=== PATIENT | female | born 1985 | race Two or more races ===

== ENCOUNTER 2019-02-18 14:46 | Emergency (ER) | payer BC, OTHER ==
[~2019-02-18] VITALS: Ht 165.1 cm; Wt 93.4 kg
[2019-02-18 15:13] VITALS: BP 109/66
== END 2019-02-18 16:12 | disposition home or self-care (01) ==
LOC: ER 14:50
DX: S83.91XA Sprain of unspecified site of right knee, initial encounter (principal); X50.1XXA Overexertion from prolonged static or awkward postures, initial encounter; Y93.89 Activity, other specified; Y99.8 Other external cause status; Y92.89 Other specified places as the place of occurrence of the external cause
CPT/HCPCS: 73562

== ENCOUNTER 2020-05-05 06:50 | Emergency (ER) | payer BC ==
[~2020-05-05] VITALS: Ht 165.1 cm; Wt 80.3 kg
[2020-05-05 08:55] LABS: Urine Bacteria NONE SEEN /hpf (None Seen); Urine Blood Negative /uL (Negative); Urine Mucus FEW (None Seen); Urine Specific Gravity 1.025 (1.001-1.035); Urine WBC 7 /hpf (0 - 5)
[2020-05-05 10:18] VITALS: BP 112/70
== END 2020-05-05 10:17 | disposition home or self-care (01) ==
LOC: ER 06:50
DX: U07.1 COVID-19 (principal); G43.909 Migraine, unspecified, not intractable, without status migrainosus; B34.9 Viral infection, unspecified; N39.0 Urinary tract infection, site not specified; F17.210 Nicotine dependence, cigarettes, uncomplicated
CPT/HCPCS: 71045; 81001; 81025; 87070; 87880; 99284; C9803; U0003

== ENCOUNTER 2022-03-23 14:56 | Emergency (ER) | payer BC, OTHER ==
[~2022-03-23] VITALS: Ht 165.1 cm; Wt 88.5 kg
[2022-03-23] MEDS ORDERED: IBUPROFEN 800 MG TAB PO ONE (16:30)
[2022-03-23] MEDS ORDERED: IBUP800T27 PO (16:35)
[2022-03-23 17:09] VITALS: BP 115/69
== END 2022-03-23 20:50 | disposition home or self-care (01) ==
LOC: ER 14:56
DX: S33.5XXA Sprain of ligaments of lumbar spine, initial encounter (principal); S63.92XA Sprain of unspecified part of left wrist and hand, initial encounter; S00.93XA Contusion of unspecified part of head, initial encounter; F17.210 Nicotine dependence, cigarettes, uncomplicated; F12.10 Cannabis abuse, uncomplicated; Z90.89 Acquired absence of other organs; V43.62XA Car passenger injured in collision with other type car in traffic accident, initial encounter; Y93.89 Activity, other specified; Y92.410 Unspecified street and highway as the place of occurrence of the external cause; Y99.8 Other external cause status
CPT/HCPCS: 70450; 72131; 73130

== ENCOUNTER 2022-11-25 00:50 | Emergency (ER) | payer BC ==
[~2022-11-25] VITALS: Ht 152.4 cm; Wt 95.0 kg
[~2022-11-25 00:50] MED LIST: IBUP800T27 PO
[2022-11-25 01:24] VITALS: BP 98/64
[2022-11-25] MEDS ORDERED: ACET-1158 PO (02:42)
[2022-11-25] MEDS ORDERED: AMOX-277 PO (02:42)
[2022-11-25] MEDS ORDERED: ONDA-144 PO (02:42)
[2022-11-25] MEDS ORDERED: PRED20TA2 PO ×2 (02:42→03:09)
[2022-11-25] MEDS ORDERED: ONDANSETRON ODT 4 MG TAB PO ONE (02:45)
[2022-11-25] MEDS ORDERED: methylPREDNISolone SOD SUCC 125 MG/2 ML VL IM ONE (02:45)
[2022-11-25] MEDS ORDERED: cefTRIAXone SOD 1,000 MG VL IM ONE (02:45)
== END 2022-11-25 03:56 | disposition home or self-care (01) ==
LOC: ER 00:52
DX: J06.9 Acute upper respiratory infection, unspecified (principal); H92.01 Otalgia, right ear; F17.210 Nicotine dependence, cigarettes, uncomplicated; F12.90 Cannabis use, unspecified, uncomplicated; Z90.49 Acquired absence of other specified parts of digestive tract; Z20.822 Contact with and (suspected) exposure to COVID-19
CPT/HCPCS: 36415; 87426; 87804; 96372; 99284; J0696; J2930; Q0162

== ENCOUNTER 2024-06-10 20:40 | Emergency (ER) | payer BC, OTHER ==
[~2024-06-10] VITALS: Ht 165.1 cm; Wt 109.1 kg
[~2024-06-10 20:40] MED LIST changes: +ACET500T58 PO; +AMOX875T4 PO; +IBUP-1456 PO; -IBUP800T27 PO; +ONDA-144 PO; +PRED20TA2 PO
[2024-06-10 22:55] LABS: Urine Bacteria None Seen /hpf (None Seen)
[2024-06-10 23:01] LABS: Basophils # (auto) 0 10 ^3/uL (0-0.2); Basophils % (auto) 0.1 % (0.0-2.0); Eosinophils # (auto) 0.1 10 ^3/uL (0-0.8); Eosinophils % (auto) 0.8 % (0.0-7.0); Hematocrit 43.4 % (36.0-46.0); Lymphocytes # (auto) 0.8 10 ^3/uL (0.4-5.4); Lymphocytes % (auto) 6.8 % (10.0-50.0); Mean Corpuscular Hemoglobin 31.7 pg (28.0-32.0); Mean Corpuscular Hgb Conc. 34.4 g/dL (32.0-36.0); Mean Corpuscular Volume 92.1 fL (80.0-100.0); Monocytes # (auto) 0.8 10 ^3/uL (0-1.3); Monocytes % (auto) 6.8 % (0.0-12.0); Neutrophils # (auto) 10.2 10 ^3/uL (1.6-8.6); Neutrophils % (auto) 85.5 % (37.0-80.0); Red Blood Cells 4.72 10^6/uL (4.0-5.20); Red Cell Distribution Width 14.3 % (11.8-14.3)
[2024-06-10 23:05] LABS: Urine Blood Negative /uL (Negative); Urine Clarity Turbid (Clear); Urine Color Yellow (Yellow); Urine Mucus FEW (None Seen); Urine Protein, UAD TRACE (Negative); Urine Specific Gravity 1.031 (1.001-1.035); Urine Urobilinogen Normal (Negative); Urine WBC 5 /hpf (0 - 5); Urine pH 6.5 (5.0-9.0)
[2024-06-10] MEDS: HYDROmorphone HCL 2 MG/ML VL/or syr IM ONE (23:15)
[2024-06-10 23:18] LABS: Alanine Aminotransferase 13 U/L (7-40); Albumin 4.4 g/dL (3.2-4.8); Alkaline Phosphatase 63 U/L (46-116); Anion Gap 11 (5-15); Aspartate Aminotransferase 8 U/L (13-40); BUN/Creatinine Ratio 23.2 (10.0-20.0); Blood Urea Nitrogen 16 mg/dL (9-23); Calcium 9.6 mg/dL (8.7-10.4); Carbon Dioxide 21 mmol/L (20-30); Chloride 106 mmol/L (98-107); Glucose 115 mg/dL (74-106); Lipase 29 U/L (12-53); Potassium 3.8 mmol/L (3.5-5.1); Sodium 138 mmol/L (136-145)
[2024-06-10] MEDS: ONDANSETRON HCL 4 MG/2 ML VIAL IM ONE (23:18)
[2024-06-10 23:19] LABS: Bilirubin, Total 1.2 mg/dL (0.2-1.0); Total Protein 7.3 g/dL (5.7-8.2)
[2024-06-11] MEDS ORDERED: DICY10CA PO (01:57)
[2024-06-11] MEDS ORDERED: ZOFR4T PO (01:57)
[2024-06-11] MEDS ORDERED: ACET500T58 PO (01:57)
[2024-06-11 02:11] VITALS: BP 113/65; PULSE 64; RESP 17; TEMP 99; O2SAT 100
== END 2024-06-11 02:12 | disposition home or self-care (01) ==
LOC: ER 20:40
DX: A08.4 Viral intestinal infection, unspecified (principal); R10.2 Pelvic and perineal pain; N83.209 Unspecified ovarian cyst, unspecified side; Z79.52 Long term (current) use of systemic steroids; F17.210 Nicotine dependence, cigarettes, uncomplicated; F12.90 Cannabis use, unspecified, uncomplicated; Z79.899 Other long term (current) drug therapy; Z79.1 Long term (current) use of non-steroidal anti-inflammatories (NSAID); Z90.49 Acquired absence of other specified parts of digestive tract
CPT/HCPCS: 36415; 74176; 80053; 81001; 83605; 83690; 84484; 84702; 85025; 93005; 96372; 99285; J1170; J2405

== ENCOUNTER 2024-10-05 17:21 | Emergency (ER) | payer OTHER ==
[~2024-10-05] VITALS: Ht 165.1 cm; Wt 108.0 kg
[~2024-10-05 17:21] MED LIST changes: +DICY10CA PO; +ZOFR4T PO
--- NOTE | 2024-10-05 18:48 | DVH ---
CLINICAL INDICATION: first toe injury/pain TECHNIQUE: 3 radiographic views of the right foot were obtained. Comparison: None FINDINGS/IMPRESSION: There is no evidence of acute fracture or dislocation. The visualized joint space is well maintained. Small plantar and posterior calcaneal bony spurs. The alignment is anatomical. There is no radiopaque foreign body.
[2024-10-05] MEDS ORDERED: IBUP-1456 PO (19:54)
--- NOTE | 2024-10-05 19:54 | ED.PDOC ---
Back pain HPI HPI Comments This is a 38-year-old female presents to the ED chief complaint right great toe pain. Patient states was running and tripped over the dog and fell on her right knee stubbed her right great toe. She notes positive swelling in bruising. She is complaining of right great toe pain 7/10 on pain scale throbbing in nature. Denies numbness weakness or any other known injury. Chief Complaint: Lower Extremity Time Seen by MD: 18:10 Primary Care Provider: [facility] Notes: Nurses Notes, Medications, Allergies Allergies: Coded Allergies: NO KNOWN ALLERGIES (Unverified , 02/18/19) Home Meds Active Scripts Ibuprofen (Ibuprofen) 800 Mg Tab, 1 TAB PO TID PRN for 5 Days, #15 TAB Prov:LEILANI SARAVIA 10/05/24 Acetaminophen (Acetaminophen) 500 Mg Tab, 500 MG PO Q4HP PRN, #30 TAB Prov:KAREN GREEN PAC 06/11/24 Dicyclomine Hcl (BENTYL CAPSULE) 10 Mg Cp, 1 CAP PO Q6HPRN, #20 CAP 0 Refills Prov:KAREN GREEN PAC 06/11/24 Ondansetron Odt 4MG Tab (ZOFRAN PO) 4 Mg Tb, 4 MG PO Q6HP PRN, #20 TAB ODT TAB-DISSOLVE IN MOUTH, THEN SWALLOW Prov:KAREN GREEN PAC 06/11/24 Prednisone (Prednisone) 20 Mg Tab, 20 MG PO BID for 5 Days, #10 TAB 0 Refills Prov:ABEL WALLACE 11/25/22 Acetaminophen (Acetaminophen) 500 Mg Tab, 500 MG PO QIDP, #30 TAB 0 Refills Prov:ABEL WALLACE 11/25/22 Ondansetron (Zofran) 4 Mg Tab, 1 TAB PO Q8HPRN, #14 TAB 0 Refills Prov:ABEL WALLACE 11/25/22 Amoxicillin & Pot Clavulanate (Amoxicillin/Potassium Cla) 875 Mg Tab, 1 TAB PO BID for 7 Days, #14 TAB 0 Refills Prov:ABEL WALLACE 11/25/22 Ibuprofen (Ibuprofen) 800 Mg Tab, 800 MG PO Q8HP PRN, #30 TAB 0 Refills Prov:ZAHRA ELIAS MD 5/15/22 Mode of Arrival: Wheelchair Past Medical History PAST MEDICAL HISTORY: Denies Surgical History: Appendectomy HAND SPRING FORMER History: Denies all HAND SPRING FORMER Hx Family History Family History: Reviewed,noncontributory to illness Social History Smoker: Cigarettes, Less Than 1 Pack/Day Alcohol: Occasionally Drugs: Marijuana Lives In: Home Constitutional: denies: chills, diaphoresis, fatigue, fever, malaise, sweats, weakness, others EENTM: denies: blurred vision, double vision, ear bleeding, ear discharge, ear drainage, ear pain, ear ringing, eye pain, eye redness, hearing loss, mouth pain, mouth swelling, nasal discharge, nose bleeding, nose congestion, nose pain, photophobia, tearing, throat pain, throat swelling, voice changes, others Respiratory: denies: cough, hemoptysis, orthopnea, SOB at rest, shortness of breath, SOB with excertion, stridor, wheezing, others Cardiovascular: denies: chest pain, dizzy spells, diaphoresis, Dyspnea on exertion, edema, irregular heart beat, left arm pain, lightheadedness, palpitations, PND, syncope, others Gastrointestinal: denies: abdomen distended, abdominal pain, blood streaked bowels, constipated, diarrhea, dysphagia, difficulty swallowing, hematemesis, melena, nausea, poor appetite, poor fluid intake, rectal bleeding, rectal pain, vomiting, others Genitourinary: denies: abnormal vagina bleeding, burning, dyspareunia, dysuria, flank pain, frequency, hematuria, incontinence, pain, , vagina discharge, urgency, others Neurological: denies: dizziness, fainting, headache, left sided numbness, left sided weakness, numbness, paresthesia, pre-existing deficit, right sided numbness, right sided weakness, seizure, speech problems, tingling, tremors, wea kness, others Musculoskeletal: reports: others (Right great toe pain); denies: back pain, gout, joint pain, joint swelling, muscle pain, muscle stiffness, neck pain Integumetry: denies: bruises, change in color, change in hair/nails, dryness, laceration, lesions, lumps, rash, wounds, others Allergic/Immunocompromised: denies: Difficulty Healing, Frequent Infections, Hives, Itching, others Hematologic/Lymphatic: denies: anemia, blood clots, easy bleeding, easy bruising, swollen glands, others Endocrine: denies: excessive hunger, excessive sweating, excessive thirst, excessive urination, flushing, intolerance to cold, intolerance to heat, unexplained weight gain, unexplained weight loss, others Psychiatric: denies: anxiety, bipolar disorder, depression, hopeless, panic disorder, schizophrenia, sleepless, suicidal, others Physical Exam General Appearance: No Apparent Distress, Normal HEENT: Pharynx Normal Neck: Full Range of Motion, Non-Tender Respiratory: Lungs Clear, No Respiratory Distress, Normal Breath Sounds Cardiovascular: No Murmur, Normal Peripheral Pulses, Regular Rate/Rhythm Breast Exam: Deferred Gastrointestinal: No Organomegaly, Non Tender, No Pulsatile Mass, Normal Bowel Sounds, Soft Genitalia: Deferred Pelvic: Deferred Rectal: Deferred Extremities: Normal capillary refill, Normal inspection, Normal range of motion, Non-tender, No pedal edema Musculoskeletal : Location: Bilateral Extremity Location: Great Toe (Noted trace edema with ecchymosis cap refill less than 3 seconds full range of motion with mild discomfort no crepitus or bony prominence no open lesions or lacerations sensory strength and motion intact.), Knee (No noted patellar crepitus bilateral knees no noted ballottement lacerations or abrasions or ecchymosis. Bilateral knee negative Yann and negative drawer exam strength sensory motion intact positive pedal pulses.) Apperance: Normal Neurologic: Alert, barrel coater II-XII nml as Tested, No Motor Deficits, Normal Affect, Normal Mood, No Sensory Deficits Cerebellar Function: Normal Reflexes: Normal Skin: Dry, Normal Color, Warm Lymphatic: No Adenopathy Was a procedure done? Was a procedure done?: No Back Pain Differential Dx Differential Diagnosis: Fracture, Musculoskeletal Pain X-Ray, Labs, Meds, VS Vital Signs Date Time Temp Pulse Resp B/P (MAP) Pulse Ox O2 Delivery O2 Flow Rate FiO2 10/05/24 20:25 80 18 97 Room Air* 0 21 10/05/24 20:25 98.3 80 18 130/92 (105) 97 98.3 10/05/24 18:02 98.0 76 18 128/86 (100) 100 X-Ray, Labs, Meds, VS Comment FOOT X-RAY NEGATIVE FOR FRACTURE. LIKELY CONTUSION. WE WILL SEND IBUPROFEN 800 MG 3 TIMES A DAY NEEDED FOR PAIN. ADVISED TO LETTY TAPE AND RICE. FOLLOW UP WITH YOUR PRIMARY CARE DOCTOR IN 2-3 DAYS IF NO IMPROVEMENT CONSIDER FURTHER IMAGING. ED RETURN PRECAUTIONS GIVEN, PATIENT INDICATED UNDERSTANDING, PATIENT AGREES WITH DISCHARGE PLAN OF CARE. Time of 1ST Reevaluation: 19:52 Reevaluation 1ST: Improved Patient Education/Counseling: Diagnosis, Treatment, Prognosis, Need For Follow Up Family Education/Counseling: No Family Present Departure 1 Departure Time of Disposition: 19:53 Impression: Primary Impression: Contusion of toe of right foot Qualified Codes: S90.111A - Contusion of right great toe without damage to nail, initial encounter Disposition: HOME / SELF CARE / HOMELESS Condition: Stable e-Prescriptions Ibuprofen (Ibuprofen) 800 Mg Tab 1 TAB PO TID PRN for 5 Days, #15 TAB Prov: LEILANI SARAVIA 10/05/24 Discharged With: Self Critical Care Note Critical Care Time?: No Stability Stability form required: LEILANI Mercer Oct 05, 2024 19:54
[2024-10-05 20:25] VITALS: BP 130/92; PULSE 80; RESP 18; TEMP 98.3; O2SAT 97
== END 2024-10-05 21:05 | disposition home or self-care (01) ==
LOC: ER 17:21
DX: S90.111A Contusion of right great toe without damage to nail, initial encounter (principal); F17.210 Nicotine dependence, cigarettes, uncomplicated; F15.90 Other stimulant use, unspecified, uncomplicated; Z90.49 Acquired absence of other specified parts of digestive tract; Z79.899 Other long term (current) drug therapy; Z79.52 Long term (current) use of systemic steroids; W01.0XXA Fall on same level from slipping, tripping and stumbling without subsequent striking against object, initial encounter; Y93.02 Activity, running; Y92.89 Other specified places as the place of occurrence of the external cause; Y99.8 Other external cause status
CPT/HCPCS: 73630